=== PATIENT | female | born 1995 | race Two or more races ===

== ENCOUNTER 2018-06-27 07:32 | Day surgery (SDC) | payer MEDICAID, OTHER ==
[2018-06-27] MEDS ORDERED: MIDAZOLAM HCL 2 MG/2ML VIAL ONE (10:59)
[2018-06-27] MEDS ORDERED: FENTANYL PF 100MCG/2ML AMPUL ONE ×2 (11:00→12:21)
[2018-06-27] MEDS ORDERED: ROCURONIUM BROMIDE 50 MG/5 ML ONE (11:00)
[2018-06-27] MEDS ORDERED: METOCLOPRAMIDE HCL 10 MG/2 ML VIAL ONE (11:41)
[2018-06-27] MEDS ORDERED: FAMOTIDINE/PF INJ 20 MG/2 ML VIAL IV ONE (11:41)
[2018-06-27] MEDS ORDERED: BUPIVACAINE 0.5 % PF 150 MG/30 ML VIAL ONE (11:47)
[2018-06-27] MEDS ORDERED: GLYCOPYRROLATE 0.2 MG/ML VIAL ONE (12:05)
[2018-06-27] MEDS ORDERED: oxyCODONE/APAP (5/325 MG) 1 UDTAB TABLET ONE (12:45)
== END 2018-06-27 13:53 | disposition home or self-care (01) ==
LOC: DS 07:32
PROVIDERS: ATTEND Student in an Organized Health Care Education/Training Program
DX: S52.601A Unspecified fracture of lower end of right ulna, initial encounter for closed fracture (principal); Z98.890 Other specified postprocedural states; X58.XXXA Exposure to other specified factors, initial encounter; Y93.89 Activity, other specified; Y92.89 Other specified places as the place of occurrence of the external cause; Y99.8 Other external cause status
CPT/HCPCS: 24685; 73090; 84703; A4565; A4606; A6253; A6402 ×2; C1713 ×2; J0690; J2250; J2405; J2704; J2710; J2765; J3010 ×2; J3490 ×4